=== PATIENT | male | born 1995 | race Caucasian/White ===

== ENCOUNTER 2024-10-01 11:24 | Outpatient (CLI) | payer OTHER | END 2024-10-01 11:25 | disposition home or self-care (01) | LOC: CSHRAD 11:24 | PROVIDERS: ATTEND Family Medicine | DX: Z00.00 Encounter for general adult medical examination without abnormal findings (principal); R94.31 Abnormal electrocardiogram [ECG] [EKG] | CPT/HCPCS: 71046; 93005; 93010 ==